=== PATIENT | male | born 1995 | race Caucasian/White ===

== ENCOUNTER 2020-12-19 21:10 | Emergency (ER) | payer MEDICAID ==
--- NOTE | 2020-12-19 21:25 | ED Physician Documentation ---
History of Present Illness - Stated complaint Stated Complaint: L ANKLE PX - Chief complaint Chief Complaint: Trauma Ext - History obtained from History obtained from: Patient - Additonal information Additional information: 25-year-old man presents with sudden onset left ankle pain while carrying a dresser upstairs associated with popping sensation, progressively worsening since yesterday, aching quality nonradiating worse with range of motion and weightbearing. Patient has been able to weight-bear this entire time. Denies sensory or motor deficits. Initially had swelling that appears to have resolved. Review of Systems Skin: denies: Lesions Musculoskeletal: reports: Extremity pain, Joint pain Neurologic: denies: Focal weakness, Numbness PD PAST MEDICAL HISTORY - Present Medications Home Medications: Ambulatory Orders Medication Instructions Recorded Confirmed No Known Home Medications 12/19/20 12/19/20 - Allergies Allergies/Adverse Reactions: Allergies Allergy/AdvReac Type Severity Reaction Status Date / Time No Known Drug Allergies Allergy Verified 12/19/20 21:19 PD ED PE NORMAL - Vitals Vital signs reviewed: Yes - General General: Alert and oriented X 3, No acute distress, Well developed/nourished - Extremities Extremities: No deformity, Other (L ankle tender with rom. normal sensation, strength, cap refill. 2+ dp/pt pulse LLE. nontender to medial/lateral mall or 5th metatarsal. no bony tenderness. mildly tender along lateral insertion of gastrocnemius) Results - Vitals Vitals: Vital Signs - 24 hr 12/19/20 12/19/20 21:10 21:31 Temperature 36.5 C 36.6 C Heart Rate 82 84 Respiratory 16 16 Rate Blood Pressure 147/92 H 142/86 H O2 Saturation 98 100 Oxygen O2 Source Room air PD MEDICAL DECISION MAKING - ED course ED course: 25-year-old man, previously healthy presents with left ankle pain after feeling popping sensation while moving a dresser up stairs yesterday, with subsequent crunching sensation in the ankle. He had no traumatic injury and was able to weight-bear immediately and is weightbearing normally now. He does have some lateral ankle pain that is nonradiating, mild, worse with weightbearing, aching quality. Initially had some swelling associated with it but now there is no swelling or redness. Denies fevers or prior injury. On examination he has no bony tenderness at lateral or medial malleolus or fifth meta tarsal and is weightbearing normally. Conservative measures discussed. Strict return precautions given. He will follow up with orthopedics in 1 week if he has no improvement. Conservative management measures discussed. Will give work note. Departure - Departure Disposition: 01 Home, Self Care Clinical Impression: Strain of tendon, Ankle pain, left Condition: Good Instructions: ED RICE Follow-Up: Ranjit Espinoza MD [Provider Admit Priv/Credential] - Comments: You are seen in the emergency department for ankle pain. It looks like this is likely a tendon strain. You can take ibuprofen 600 mg (3 pills of regular strength ibuprofen or Motrin) every 6 hours as needed for pain. Follow the conservative management measures that we discussed. Return to the emergency department for any new or worsening symptoms or other concerns. Follow-up with orthopedics if you do not have improvement in 1 week. Forms: Activity restrictions Discharge Date/Time: 12/19/20 21:32
[2020-12-19 21:37] VITALS: BP 142/86
== END 2020-12-19 21:32 | disposition home or self-care (01) ==
LOC: ED 21:10
DX: S96.912A Strain of unspecified muscle and tendon at ankle and foot level, left foot, initial encounter (principal); X50.1XXA Overexertion from prolonged static or awkward postures, initial encounter; Y93.89 Activity, other specified
CPT/HCPCS: 99282

== ENCOUNTER 2020-12-30 08:30 | Emergency (ER) | payer MEDICAID ==
--- NOTE | 2020-12-30 09:43 | ED Physician Documentation ---
PD HPI SYNCOPE - Stated complaint Stated Complaint: STARR/DIZZINESS - Chief complaint Chief Complaint: Neuro - History obtained from History obtained from: Patient - History of Present Illness Witnessed: Unwitnessed Timing - onset: Today Injury occurred: Fell, Head injury Pain level max: 5 Pain level now: 2 Recently seen: Not recently seen - Additional information Additional information: Patient is a 25-year-old male who presents to the emergency department after a syncopal event last night. He states in the middle of the night he got up to use the restroom. He urinated in the toilet, then stood up felt lightheaded dizzy and passed out. States that he awoke leaning against the wall. States he hit the back of his head and is still having a headache today. No neck or back pain. He is concerned about potential concussion. Has not had syncope before, but has felt lightheaded when using the restroom after urination. Review of Systems Ten Systems: 10 systems reviewed and negative Constitutional: denies: Fever, Chills Ears: denies: Ear pain Nose: denies: Rhinorrhea / runny nose, Congestion GI: denies: Vomiting, Diarrhea Skin: denies: Rash Musculoskeletal: denies: Neck pain, Back pain Neurologic: denies: Headache PD PAST MEDICAL HISTORY - Past Medical History Past Medical History: No - Past Surgical History Past Surgical History: No - Present Medications Home Medications: Ambulatory Orders Medication Instructions Recorded Confirmed No Known Home Medications 12/19/20 12/30/20 - Allergies Allergies/Adverse Reactions: Allergies Allergy/AdvReac Type Severity Reaction Status Date / Time No Known Drug Allergies Allergy Verified 12/30/20 08:41 - Social History Does the pt smoke?: No Smoking Status: Never smoker Does the pt drink ETOH?: Yes Does the pt have substance abuse?: No - Immunizations Immunizations are current?: Yes PD ED PE NORMAL - Vitals Vital signs reviewed: Yes - General General: Alert and oriented X 3, No acute distress, Well developed/nourished - HEENT HEENT: Atraumatic, PERRL, EOMI, Ears normal, Moist mucous membranes - Neck Neck: Supple, no meningeal sign - Cardiac Cardiac: RRR, Strong equal pulses - Respiratory Respiratory: No respiratory distress, Clear bilaterally - Abdomen Abdomen: Soft, Non tender, Non distended - Back Back: No spinal TTP - Derm Derm: Warm and dry - Extremities Extremities: No edema, No calf tenderness / cord - Neuro Neuro: Alert and oriented X 3, 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, No motor deficit, No sensory deficit, Normal speech Eye Opening: Spontaneous Motor: Obeys Commands Verbal: Oriented GCS Score: 15 - Psych Psych: Normal mood, Normal affect Results - Vitals Vitals: Vital Signs - 24 hr 12/30/20 12/30/20 08:38 10:34 Temperature 36.0 C L Heart Rate 70 69 Respiratory 16 16 Rate Blood Pressure 146/70 H 123/82 H O2 Saturation 98 100 Oxygen O2 Source Room air - EKG (time done) 0940 Rate: Rate (enter#) (64) Rhythm: NSR [place]: Normal Intervals: Normal [place] QRS: Normal Ischemia: Normal ST segments - Labs Labs: Laboratory Tests 12/30/20 12/30/20 12/30/20 09:43 09:43 09:43 WBC 9.4 RBC 4.84 Hgb 14.6 Hct 43.2 MCV 89.3 MCH 30.2 MCHC 33.8 RDW 12.6 Plt Count 350 MPV 8.8 Neut # (Auto) 6.0 Lymph # (Auto) 2.8 [place] # (Auto) 0.6 Eos # (Auto) 0.1 Baso # (Auto) 0.0 Absolute Nucleated RBC 0.00 Nucleated RBC % 0.0 Sodium 138 Potassium 4.1 Chloride 101 Carbon Dioxide 25 Anion Gap 12.0 BUN 16 Creatinine 0.6 Estimated GFR (MDRD) 164 Glucose 121 H Calcium 9.5 Total Bilirubin 0.8 AST 34 ALT 25 Alkaline Phosphatase 78 Troponin I High Sens < 2.3 L Total Protein 7.9 Albumin 4.2 Globulin 3.7 Albumin/Globulin Ratio 1.1 Lipase 22 - Rads (name of study) cxr Radiology: Prelim report reviewed, EMP read contemporaneously, See rad report (No acute cardiac pulmonary process demonstrated. ) head Ct Radiology: Prelim report reviewed, EMP read contemporaneously, See rad report (No acute intracranial abnormality. ) PD MEDICAL DECISION MAKING - ED course Complexity details: reviewed results, re-evaluated patient, considered differential, d/w patient ED course: 25-year-old male with what sounds like micturition associated syncope last night. No acute findings on head CT, chest x-ray, laboratory testing, EKG or telemetry. Patient is well-appearing, nontoxic. Afebrile. No murmur on exam. Asymptomatic here. We will have him follow-up with his doctor for further care. Patient counseled regarding signs and symptoms for which I believe and urgent re-evaluation would be necessary. Patient with good understanding of and agree ment to plan and is comfortable going home at this time This document was made in part using voice recognition software. While efforts are made to proofread this document, sound alike and grammatical errors may occur. Departure - Departure Disposition: 01 Home, Self Care Clinical Impression: Syncope Qualifiers: Syncope type: unspecified Qualified Code(s): R55 - Syncope and collapse Closed head injury Qualifiers: Encounter type: initial encounter Qualified Code(s): S09.90XA - Unspecified injury of head, initial encounter Condition: Good Instructions: ED Head Injury Closed, ED Syncope Vasovagal Follow-Up: Your,doctor in 1 week [Other] Comments: It sounds as if you had what we called micturition (urinary) associated syncope. Follow-up with your doctor for further care. Return if you worsen. The remainder of your tests are normal today. Discharge Date/Time: 12/30/20 10:38
[2020-12-30 09:50] LABS: BASOPHILS % (AUTO) 0.3 %; EOSINOPHILS # (AUTO) 0.1 10^3/uL (0.0-0.7); EOSINOPHILS % (AUTO) 0.8 %; HCT - HEMATOCRIT 43.2 % (42.0-52.0); HGB - HEMOGLOBIN 14.6 g/dL (14.0-18.0); LYMPHOCYTES # (AUTO) 2.8 10^3/uL (1.5-3.5); LYMPHOCYTES % (AUTO) 29.3 %; MEAN CORPUSCULAR HEMOGLOBIN 30.2 pg (27.0-31.0); MEAN CORPUSCULAR HGB CONC 33.8 g/dL (32.0-36.0); MEAN CORPUSCULAR VOLUME 89.3 fL (80.0-94.0); MEAN PLATELET VOLUME 8.8 fL (7.4-11.4); MONOCYTES # (AUTO) 0.6 10^3/uL (0.0-1.0); MONOCYTES % (AUTO) 5.9 %; NEUTROPHILS % (AUTO) 63.4 %; PLT - PLATELET COUNT 350 10^3/uL (130-450); RED BLOOD COUNT 4.84 10^6/uL (4.70-6.10); RED CELL DISTRIBUTION WIDTH 12.6 % (12.0-15.0); WHITE BLOOD COUNT 9.4 x10^3/uL (4.8-10.8)
--- NOTE | 2020-12-30 10:10 | CT Report ---
PROCEDURE: HEAD WO INDICATIONS: syncope, head injury TECHNIQUE: Noncontrast 4.5 mm thick angled axial sections acquired from the foramen magnum to the vertex. For r adiation dose reduction, the following was used: automated exposure control, adjustment of mA and/or kV according to patient size. COMPARISON: None. FINDINGS: Image quality: Excellent. CSF spaces: Basal cisterns are patent. No extra-axial fluid collections. Ventricles are normal in size and shape. Brain: No midline shift. No intracranial masses or hemorrhage. Tobias-white matter interface is norm al. Skull and face: Calvarium and visualized facial bones are intact, without suspicious lesions. Sinuses: Visualized sinuses and mastoids are clear. IMPRESSION: No acute intracranial abnormality. Reviewed by: Facundo Sears MD on 12/30/2020 10:08 AM [facility] Approved by: Facundo Sears MD on 12/30/2020 10:08 AM [facility] Station ID: [id number]
[2020-12-30 10:13] LABS: ALBUMIN 4.2 g/dL (3.2-5.5); ALBUMIN/GLOBULIN RATIO 1.1 (1.0-2.2); BILIRUBIN,TOTAL 0.8 mg/dL (0.2-1.0); CALCIUM 9.5 mg/dL (8.5-10.3); CREATININE 0.6 mg/dL (0.6-1.2); POTASSIUM 4.1 mmol/L (3.5-5.0); TOTAL PROTEIN 7.9 g/dL (6.7-8.2)
--- NOTE | 2020-12-30 10:16 | XRAY Report ---
PROCEDURE: Chest 1 View X-Ray INDICATIONS: Chest pain TECHNIQUE: One view of the chest was acquired. COMPARISON: None. FINDINGS: Surgical changes and devices: None. Lungs and pleura: No pleural effusions or pneumothorax. Lungs are clear. Mediastinum: Mediastinal contours appear normal. Heart size is normal. Bones and chest wall: No suspicious bony lesions. Overlying soft tissues appear unremarkable. IMPRESSION: No acute cardiac pulmonary process demonstrated. Reviewed by: Bud Osborne MD on 12/30/2020 10:15 AM [facility] Approved by: Bud Osborne MD on 12/30/2020 10:15 AM [facility] Station ID: [id number]
[2020-12-30 10:35] VITALS: BP 123/82
== END 2020-12-30 10:38 | disposition home or self-care (01) ==
LOC: ED 08:30
DX: R55 Syncope and collapse (principal); S09.90XA Unspecified injury of head, initial encounter; W18.30XA Fall on same level, unspecified, initial encounter; Y92.002 Bathroom of unspecified non-institutional (private) residence as the place of occurrence of the external cause
CPT/HCPCS: 36415; 80053; 83690; 84484; 85025; 93005; 99284